=== PATIENT | female | born 1990 | race Caucasian/White ===

== ENCOUNTER 2020-04-23 14:26 | Outpatient (REF) | payer OTHER, SELFPAY ==
[2020-04-24 03:55] LABS: HBc Num1 0.05 S/CO (0.00-0.79); HBsAGNum1 0.17 S/CO (0.00-0.99); Hepatitis B Core Antibody Nonreactive (Nonreactive); Hepatitis B Surface Antigen Negative (Negative); ~Hepatitis B Surface Antibody REACTIVE (Nonreactive)
[2020-04-24 09:07] LABS: Rubella IgG Antibody 3.74 Index; Varicella IgG Antibody <135.00 index
[2020-04-26 15:12] LABS: TS Negative Control Passed; TS Panel A 1; TS Panel B 0; TS Positive Control Passed; TSpotTB Negative (SeeBelow)
== END 2020-04-23 14:27 | disposition home or self-care (01) ==
LOC: HO.LAB 14:26
PROVIDERS: Visit Provider Internal Medicine
DX: Z00.00 Encounter for general adult medical examination without abnormal findings (principal)
CPT/HCPCS: 36415; 86481; 86704; 86706; 86735; 86762; 86765; 86787; 87340

== ENCOUNTER 2023-04-13 14:28 | Outpatient (AMB) | payer OTHER, SELFPAY ==
[2023-04-13 14:30] VITALS: BP 110/70; PULSE 64; BMI 28.7
--- NOTE | 2023-04-13 14:30 | MHC.PC.OV ---
Vital Signs 04/13/23 14:30 Height 4 ft 11 in Weight 142 lb BMI 28.7 BP 110/70 Blood Pressure Location Lt brachial Position Sitting Pulse 64 Pulse Source Pulse Oximeter Oxygen Delivery Method Room Air Intake Visit Reasons: follow up headaches/ meds Ship Scaler Required: No Special Services Supervisor: Not Required per policy Accompanied by: Self / Same As Patient Allergies No Known Allergies Allergy (Mild, Verified 04/13/23 14:31) NKA Tobacco use date assessed: 04/13/23 Dental Screening Dental Screen Date: 04/13/23 Did you have a dental visit in the last 12 months?: No Did you have a dental problem in the last 6 months where you did not have access to dental care?: No Was dental information given to patient?: Patient has dentist HPI follow up headaches/ meds HPI Details new patient, in and out of rehab wants psych meds renewed; also wants suboxone refilled and said she has received it in this office which is not true. [facility] Medical History (Updated 04/14/23 @ 12:52 by Amarjit Sweeney MD) Asthma Social History Housing: House Patient Tobacco Use Status: Former Tobacco user Tobacco use type: Cigarette Cigarette Packs Per Day: 1 Current occupational status: unemployed Cognitive needs: No Hearing needs: No Vision needs: Yes Questionnaire PHQ-9 Over the last 2 weeks, how often have you been bothered by any of the following problems? 1. Little interest or pleasure in doing things: not at all 2. Feeling down, depressed, or hopeless: not at all 3. Trouble falling or staying asleep, or sleeping too much: not at all 4. Feeling tired or having little energy: not at all 5. Poor appetite or overeating: not at all 6. Feeling bad about yourself - or that you are a failure or have let yourself or your family down: not at all 7. Trouble concentrating on things, such as reading the newspaper or watching television: not at all 8. Moving or speaking so slowly that other people could have noticed. Or the opposite - being so fidgety or restless that you have been moving around a lot more than usual: not at all 9. Thoughts that you would be better off or of hurting yourself in some way: not at all Total score: 0 Source: Developed by Drs. Doron Irvin, Faviola Becker, Vipul Gutierrez and colleagues, with an educational yarely from [employer]. Thrive Questionnaire Date Thrive assessed: 04/13/23 I am a: Patient What is your living situation today?: I have a steady place to live Within the past 12 months, did the food you bought not last and you didn't have the money to get more?: Never true Within the past 12 months, did you worry whether your food would run out before you got money to buy more?: Never true Do you have trouble paying for medicines?: No Do you have trouble getting transportation to medical appointments?: No Do you have trouble paying your heating and electricity bill?: No Do you have trouble taking care of your child, family member or friend?: No Do you have trouble with day-to-day activities such as bathing, preparing meals, shopping, managing finances, etc.?: No Are you currently unemployed and looking for a job?: No Are you interested in more education?: No Please select the resources that you would like help with: None THRIVE Score: 0 AUDIT C Alcohol Use Questionnaire (AUDIT-C) 1. How often do you have a drink containing alcohol?: Never Total Score: 0 KADE-7 AMB Questionnaire KADE-7 Date KADE - 7 assessed: 04/13/23 Feeling nervous, anxious, or on edge: 0 = Not at all Not being able to stop or control worryin = Not at all Worrying too much about different things: 0 = Not at all Trouble relaxin = Not at all Being so restless that it is hard to sit still: 0 = Not at all Becoming easily annoyed or irritable: 0 = Not at all Feeling afraid as if something awful might happen: 0 = Not at all Total KADE-7 score (0-4 normal; 5-9 mild; 10-14 moderate; 15-21 severe): 0 Source: Developed by Drs. Doron Irvin, Faviola Becker, Vipul Gutierrez and colleagues, with an educational yarely from [employer]. Review of Systems Const Denies chills, Denies headache(s) and Denies weight loss ENT Denies headache(s) Card Denies chest pain, Denies syncope, Denies irregular heart rhythm and Denies dyspnea Resp Denies chest congestion, Denies cough and Denies dyspnea GI Denies abdominal pain, Denies change in stool character, Denies nausea and Denies vomiting Musc Denies deformity and Denies joint swelling Neuro Denies syncope and Denies headache(s) Physical exam (Primary Care) Vital Signs: Last Vital Signs Pulse 64 04/13/23 14:30 BP 110/70 04/13/23 14:30 Oxygen Delivery Method Room Air 04/13/23 14:30 BMI result Body Mass Index 28.7 Tobacco/Smoking Status: Tobacco use Status Tobacco use date assessed 04/13/23 04/13/23 14:32 Patient Tobacco Use Status Former Tobacco user 04/13/23 14:45 Tobacco use type Cigarette 04/13/23 14:45 PHQ-9: PHQ-9 Score PHQ-9: Total score 0 04/13/23 14:32 Thrive Assessment: Date of Thrive Assessment Date Thrive assessed 04/13/23 04/13/23 14:32 Const General: cooperative, comfortable, no acute distress and alert Neck Neck: Yes no lymphadenopathy Thyroid: Thyroid normal Resp Effort & Inspection: normal respiratory effort Auscultation: clear to auscultation bilaterally Percussion: percussion normal Cardio Jugular venous distension: no JVD Palpation: normal PMI Rate: regular rate Rhythm: regular rhythm Heart sounds: S1 normal heart sound present and S2 normal heart sound present GI Inspection: Yes normal to inspection Palpation (GI): No hepatosplenomegaly present Skin General skin exam: no rashes or lesions noted Extrem General: Yes no clubbing, cyanosis or edema Assessment and Plan Assessment & Plan (1) Substance abuse: Code(s): F19.10 - Other psychoactive substance abuse, uncomplicated Plan: recommend she follow up with suboxone clinic; other scripts refilled Medications: Refilled propranolol 20 mg PO DAILY 30 tabs 1RF quetiapine 50 mg PO BEDTIME 30 tabs 0RF trazodone 100 mg PO BEDTIME PRN 30 tabs 0RF sleep 30 days escitalopram oxalate 10 mg PO DAILY 30 tabs 0RF 30 days hydroxyzine HCl 25 mg PO BEDTIME 30 tabs 0RF Coding Level of Care Code New Pt Level 4 (74529) Diagnoses Substance abuse F19.10
== END 2023-04-13 15:01 | disposition home or self-care (01) ==
PROVIDERS: PCP Internal Medicine; Visit Provider Internal Medicine
DX: F19.10 Other psychoactive substance abuse, uncomplicated (principal)
CPT/HCPCS: 99204

== ENCOUNTER 2024-09-29 15:34 | Outpatient (REF) | payer OTHER, SELFPAY ==
--- OUTSIDE RECORDS SUMMARY | 2024-09-29 16:09 | XMS_ITS | Clinical Summary ---
Author Organization [facility] Address [address] [place] [address] Care Team Providers Care Rat Poisoner Name Role Phone Luana Andrews NP Primary Care Provider [phone] Source Comments PLEASE NOTE, if this patient is a minor, it may be UNLAWFUL to discuss sensitive information that is contained in these records (such as FAMILY PLANNING, MENTAL HEALTH or SUBSTANCE ABUSE) with the minor patient's parent or other person without the patient's specific authorization.[facility] Allergies No known active allergies Medications acetaminophen (TYLENOL) 325 mg tablet Take 2 Tablets by mouth every 8 (eight) hours 60 Tablet 1 12/16/19 24 Active ibuprofen 600 mg tablet Take 1 Tablet by mouth 3 (three) times daily as needed for pain 60 Tablet 1 12/16/19 24 Active folic acid (FOLVITE) 1 mg tablet Take 1 Tablet by mouth once daily 90 Tablet 1 12/16/19 24 Active hydrocortisone (ANUSOL-HC) 2.5 % topical cream Place 1 Application rectally 2 (two) times daily 30 g 3 12/22/19 24 Active naloxone (NARCAN) 4 mg/actuation nasal spray Place 1 [place]ett into the nostril(s) as needed for opioid reversal (Overdose) 2 Each 01/29/20 24 Active SENNA 8.6 mg tablet Take 2 Tablets by mouth nightly at bedtime as needed for constipation 60 Tablet 3 05/19/19 25 Active docusate sodium (COLACE) 100 mg capsule Take 1 Capsule by mouth 2 (two) times daily as needed for constipation 60 Capsule 3 05/19/19 25 Active buprenorphine-nal oxone (SUBOXONE FILM) 4-[address] 1 Strip under the tongue once daily as needed for other reason (breakthrough cravings or withdrawal symptoms) for up to 42 days 21 Each 1 06/23/19 25 Active methylphenidate HCl (CONCERTA) 36 mg ER tabletIndications :Attention deficit hyperactivity disorder (ADHD), predominantly inattentive type Take 1 Tablet by mouth every morning before breakfast. Max Daily Amount: 36 mg 30 Tablet 08/20/19 25 Active clonazePAM (KLONOPIN) 0.5 mg tabletIndications :PTSD (post-traumatic stress disorder),General ized anxiety disorder with panic attacks Take 0.5 Tablets by mouth 2 (two) times daily. Max Daily Amount: 0.5 mg 30 Tablet 08/20/19 25 Active topiramate (TOPAMAX) 100 mg tabletIndications :Cocaine use disorder, moderate, in sustained remission ([facility]) Take 1 Tablet by mouth 2 (two) times daily. 60 Tablet 1 08/20/19 25 Active traZODone (DESYREL) 100 mg tabletIndications :Other insomnia Take 0.5-1 Tablets by mouth nightly at bedtime. 30 Tablet 1 08/20/19 25 Active prazosin (MINIPRESS) 2 mg capsuleIndication s:PTSD (post-traumatic stress disorder),Nightma res associated with chronic post-traumatic stress disorder Take 2 Capsules by mouth nightly at bedtime. 60 Capsule 1 08/20/19 25 Active DULoxetine (CYMBALTA) [address] capsuleIndication s:PTSD (post-traumatic stress disorder),General ized anxiety disorder with panic attacks Take 1 Capsule by mouth once daily. 09/24/19 25 Active melatonin 3 mg tablet Take 1 Tablet by mouth nightly at bedtime as needed for sleep. 30 Tablet 4 09/24/19 25 Active DULoxetine (CYMBALTA) [address] capsuleIndication s:PTSD (post-traumatic stress disorder),General ized anxiety disorder with panic attacks Take 1 Capsule by mouth once daily Take with 20 mg capsule for a total of Cymbalta DR 80 mg PO daily. 30 Capsule 3 08/06/19 25 025 Discontin ued(Quant ity/Dosag e and/or Sig change) Active Problems Problem Noted Date Diagnosed Date ADHD 01/08/2024 Assessment & Plan (06/21/2024 3:10 PM EDT): Continue Concerta 27 mg PO daily, defer dose increase today Neuropsych testing referral in place Assessment & Plan (05/27/2024 11:02 AM EDT): INCREASE Concerta XR to 27 mg PO daily--bridged to next in person appointment Utox to be collected at next in person appointment Neuropsych referral placed Assessment & Plan (04/05/2024 6:00 AM EST): Continue Concerta XR 18 mg PO daily--bridged to next in person appointment Utox to be collected at next in person appointment Assessment & Plan (03/01/2024 12:04 PM EST): Continue Concerta XR 18 mg PO daily Utox ordered Assessment & Plan (02/02/2024 12:07 PM EST): Continue Concerta ER 18 mg PO daily for focus/inattention issues--most recent utox appropriate; will have Leandra sign BHARGAVI re results of past neuro psych testing Thus far well tolerated but Leandra unsure of efficacy; will give more time Assessment & Plan (01/08/2024 5:04 PM EDT): START Concerta ER 18 mg PO daily for focus/inattention issues--most recent utox appropriate; will have Leandra sign BHARGAVI re results of past neuro psych testing Complex care coordination 12/23/2023 Assessment & Plan (06/21/2024 3:11 PM EDT): [facility]), updated med list faxed to [facility] per Leandra's request Assessment & Plan (05/27/2024 11:33 AM EDT): Continue to collaborate with PCP ASH Andrews and [facility] MICHAEL Gomez re care coordination/pertinent labs/screenings/monitoring Assessment & Plan (02/02/2024 12:08 PM EST): Updated medication list faxed to [facility] Assessment & Plan (01/08/2024 4:56 PM EDT): Updated medication list faxed to [facility] Assessment & Plan (12/23/2023 2:49 PM EDT): Information regarding medication changes sent to [facility] Abnormal weight gain 12/01/2023 Assessment & Plan (05/27/2024 11:34 AM EDT): No longer on atypical antipsychotic, reviewed healthy lifestyle strategies, follow up with PCP Assessment & Plan (01/14/2024 10:54 AM EDT): Pt is extremely concerned with the weight gain she has experienced while being at [facility]. She was 177 lbs on 06/15/23 and is now at 221 lbs. She leads a sedentary lifestyle which is likely contributing to weight gain and disconditioning. This senior medical writer and Pt reviewed CDC recommendations for physical activity for her age group. Provided her with info sheets on different exercises she can do on her own without needing machines or equipment. She was also given a nutrition sheet describing healthy foods she can try and incorporate into her diet. Reminded Pt that [facility] clients are able to join the [employer] gym in [facility] for free. Encouraged her to check it out. Assessment & Plan (12/23/2023 2:47 PM EDT): -Reviewed healthy lifestyle changes including: healthy eating, exercise -completing antipsychotic cross taper Assessment & Plan (12/01/2023 2:45 PM EDT): -Collaborate with ASH Andrews (patient's PCP) re weight loss w/u and to discuss Pharmacologic management -Reviewed healthy lifestyle changes including: healthy eating, exercise -Cross Taper to Start treatment with Latuda and Stop treatment with Seroquel Generalized anxiety disorder with panic attacks 11/06/2023 Assessment & Plan (06/21/2024 3:09 PM EDT): Increase Cymbalta to 80 mg PO daily Encourage psychotherapy Continue Clonazepam 0.5 mg PO BID PRN for anxiety (utox and V[employer]UCATION PROFESSIONAL reviewed) Most recent utox appropriate Assessment & Plan (05/27/2024 11:01 AM EDT): Continue Cymbalta 60 mg PO daily (consider increase at next visit) Encourage psychotherapy Continue Clonazepam 0.5 mg PO BID PRN for anxiety (most recent utox appropriate) Next appointment in person for utox Assessment & Plan (04/22/2024 12:21 PM EST): Continue Cymbalta 60 mg PO daily (consider increase at next visit) Encourage psychotherapy Continue Clonazepam 0.5 mg PO BID PRN for anxiety (most recent utox appropriate) Next appointment in person for utox Assessment & Plan (04/05/2024 5:59 AM EST): Continue Cymbalta 60 mg PO daily Encourage psychotherapy Continue Clonazepam 0.5 mg PO BID PRN for anxiety Currently at [facility] Assessment & Plan (02/02/2024 12:06 PM EST): Continue Cymbalta 60 mg PO daily Encourage psychotherapy (will have apt with [facility] therapist Jamie) Continue Clonazepam 0.5 mg PO BID PRN for anxiety Assessment & Plan (01/08/2024 4:54 PM EDT): Continue Cymbalta 60 mg PO daily Encourage psychotherapy (will have apt with [facility] therapist Jamie) Continue Clonazepam 0.5 mg PO BID PRN for anxiety Assessment & Plan (12/01/2023 2:41 PM EDT): Continue Cymbalta 60 mg PO daily Encourage psychotherapy (will have apt with [facility] therapist Jamie) Continue Clonazepam 0.5 mg PO BID PRN for anxiety Assessment & Plan (11/06/2023 1:19 PM EDT): Continue Clonazam 0.5 mg PO BID PRN for anxiety Continue monthly utox screenings Continue psychotherapy Acute bilateral low back pain with bilateral sci atica 10/21/2023 Assessment & Plan (10/23/2023 12:48 PM EDT): Instructed pt that a provider would need to increase her pain med-pt's provider currently on vacation Appt made with Davida Andrews np for nov 17 for further eval. Inbasket sent to Davida Andrews np to inform of back pain/ibuprofen and tylenol not helping Talked with pt that she may need a referral to ortho but that would be up to her pcp Instructed pt to continue to take ibuprofen and tylenol as ordered-instructed pt if her back pain gets worse, she can go to the er for a further eval. Instructed pt in the s/sx of neuro distress-steps to take if occur. Assessment & Plan (10/21/2023 12:43 PM EDT): PT with low back pain with sciatic nerve involvement. She is having difficulty ambulating. She has not taken anything for the pain. Assessed area. Some swelling noted, no bruises or angelina injury obvious. She has gained weight while being in the program, and leads a sedentary lifestyle. She had a refill for Ibuprofen 600 mg at the pharmacy and they will deliver it tomorrow. She does not have any refills left on Acetaminophen 650 mg. Provided Pt with a dose of Acetaminophen 650 mg and Ibuprofen 600 mg in clinic from [facility]. She was given additional packets, ice/hot packs, and muscle rub. Encouraged to use pillow under or between knees when sleeping depending on positioning. Encouraged light stretching starting tomorrow. Pt excused from responsibilities through Thursday when she will be back for follow up. She has gained weight, and reports that this pain is chronic, coming and going for a few years. She will benefit from weight, nutrition, and exercise education, as well as Physical Therapy.Will schedule provider follow up on Thursday. Cocaine use disorder, modera te, in sustained remission ([facility]) 09/04/2023 Assessment & Plan (06/21/2024 3:08 PM EDT): Continue Topamax to 100 mg PO BID; reporting some increased cravings---encouraged to engage in START program through [facility]; may also receive some MAT via low-dose stimulant, most recent utox appropriate Assessment & Plan (05/27/2024 10:58 AM EDT): Continue Topamax to 100 mg PO BID; reporting some increased cravings---encouraged to engage in START program through [facility]; may also receive some MAT via low-dose stimulant, most recent utox + for cocaine though Leandra denies use--will obtain repeat utox Assessment & Plan (04/22/2024 12:23 PM EST): Continue Topamax to 100 mg PO BID; reporting some increased cravings---encouraged to engage in START program through [facility]; may also receive some MAT via low-dose stimulant Assessment & Plan (04/05/2024 6:01 AM EST): Continue Topamax to 100 mg PO BID; reporting reduced cravings-engaging in START program through [facility]; may also receive some MAT via low-dose stimulant Assessment & Plan (03/01/2024 12:05 PM EST): Continue Topamax to 100 mg PO BID; reporting reduced cravings-engaging in START program through [facility]; may also receive some MAT via low-dose stimulant Assessment & Plan (02/02/2024 12:08 PM EST): INCREASE Topamax to 100 mg PO BID; pending effect--reports cravings persist--engaging in START program through [facility]; may also receive some MAT via low-dose stimulant Assessment & Plan (01/08/2024 4:55 PM EDT): Topamax increased to 75 mg PO BID; pending effect--reports cravings persist--engaging in START program through [facility]; may also receive some MAT via low-dose stimulant Assessment & Plan (12/23/2023 2:45 PM EDT): Change Topamax to 50 mg PO BID to mitigate HS activation (encourage increase if patient amenable) Assessment & Plan (12/01/2023 2:42 PM EDT): Continue Topamax 25 mg PO daily and 75 mg PO QHS to reduce daytime sedation (encourage increase if patient amenable) Assessment & Plan (11/06/2023 1:16 PM EDT): Continue Topamax--change dosing to 25 mg PO daily and 75 mg PO QHS to reduce daytime sedation Assessment & Plan (09/04/2023 5:16 PM EDT): Still abstinent but reporting increased cravings, consider starting Topamax 25 mg PO QHS at next visit PTSD (post-traumatic stress disorder) 08/25/2023 Assessment & Plan (06/21/2024 3:09 PM EDT): Increase Cymbalta to 80 mg PO daily Encourage psychotherapy Continue Clonazepam 0.5 mg PO BID PRN for anxiety (VOCATIONAL EDUCATION PROFESSIONAL reviewed) Most recent utox appropriate Continue Prazosin Assessment & Plan (05/27/2024 11:01 AM EDT): Continue Cymbalta 60 mg PO daily Encourage psychotherapy Continue Clonazepam 0.5 mg PO BID PRN for anxiety (utox and V[employer]ATIONAL EDUCATION PROFESSIONAL reviewed) Will obtain repeat utox at next appointment Continue Prazosin Assessment & Plan (04/22/2024 12:21 PM EST): Continue Cymbalta 60 mg PO daily Encourage psychotherapy Continue Clonazepam 0.5 mg PO BID PRN for anxiety (most recent utox appropriate) Will obtain repeat utox at next appointment Assessment & Plan (04/05/2024 5:59 AM EST): Continue Cymbalta 60 mg PO daily Encourage psychotherapy Continue Clonazepam 0.5 mg PO BID PRN for anxiety (most recent utox appropriate) Currently completing IOP Assessment & Plan (03/01/2024 12:03 PM EST): Continue Cymbalta 60 mg PO daily Encourage psychotherapy (f/u [facility] therapist at next visit) Continue Clonazepam 0.5 mg PO BID PRN for anxiety (most recent utox appropriate) Assessment & Plan (02/02/2024 12:06 PM EST): Continue Cymbalta 60 mg PO daily Encourage psychotherapy (will have appt with [facility] therapist Jamie) Continue Clonazepam 0.5 mg PO BID PRN for anxiety (most recent utox appropriate) Assessment & Plan (01/08/2024 4:54 PM EDT): Continue Cymbalta 60 mg PO daily Encourage psychotherapy (will have appt with [facility] therapist Jamie) Continue Clonazepam 0.5 mg PO BID PRN for anxiety (most recent utox appropriate) Assessment & Plan (12/23/2023 2:44 PM EDT): Continue Cymbalta 60 mg PO daily Encourage psychotherapy (will have appt with [facility] therapist Jamie) Continue Clonazepam 0.5 mg PO BID PRN for anxiety (most recent utox appropriate) Assessment & Plan (12/01/2023 2:40 PM EDT): Continue Cymbalta 60 mg PO daily Encourage psychotherapy (will have apt with [facility] therapist Jamie) Continue Clonazepam 0.5 mg PO BID PRN for anxiety Assessment & Plan (11/06/2023 1:12 PM EDT): Continue Lexapro 20 mg PO daily [facility]discussed option for psychotherapy w/ clinician Avani White if indicated d/t staffing turnover at [facility] Continue Seroquel 300 mg PO QHS Moderate episode of recurren t major depressive disorder ([facility]) 08/25/2023 Assessment & Plan (06/21/2024 3:08 PM EDT): Reporting some increased depression INCREASE Cymbalta to 80 mg PO daily Encourage psychotherapy Assessment & Plan (04/22/2024 12:20 PM EST): Reporting some increased depression Continue Cymbalta 60 mg PO daily ( can consider increasing cymbalta at next visit declines today) Encourage psychotherapy Assessment & Plan (01/14/2024 10:56 AM EDT): Pt has been struggling with her mental health, and states she feel very unmotivated. All she wants to do is sleep. This senior medical writer reminded her of her psych appointment today, and Pt stated she didn't remember she had one. She will go after this visit. Assessment & Plan (01/08/2024 4:54 PM EDT): Continue Cymbalta at 60 mg PO daily Continue Latuda to 60 mg PO daily (has been tolerating and requests increase to help manage mood) Encourage psychotherapy Assessment & Plan (12/23/2023 2:42 PM EDT): STOP Seroquel (cross taper complete) Continue Cymbalta at 60 mg PO daily INCREASE Latuda to 60 mg PO daily (has been tolerating and requests increase to help manage mood) Assessment & Plan (12/01/2023 2:39 PM EDT): Cross Taper Latuda and Seroquel Continue Cymbalta at 60 mg PO daily Nightmares associated with c hronic post-traumatic stress disorder 08/25/2023 Assessment & Plan (05/27/2024 10:55 AM EDT): Continue Prazosin 4 mg PO QHS for nightmares Assessment & Plan (01/08/2024 4:53 PM EDT): Continue Prazosin 4 mg PO QHS for nightmares Assessment & Plan (12/23/2023 2:41 PM EDT): Continue Prazosin 4 mg PO QHS for nightmares Assessment & Plan (11/06/2023 1:13 PM EDT): Continue Prazosin 4 mg PO QHS for nightmares Other insomnia 08/25/2023 Assessment & Plan (05/27/2024 11:33 AM EDT): Reports sleep improved--continue trazodone 150 mg PO QHS and Melatonin PRN Assessment & Plan (04/22/2024 12:23 PM EST): Reports sleep improved--continue trazodone 150 mg PO QHS and Melatonin PRN Assessment & Plan (04/05/2024 6:01 AM EST): Reports sleep improved--continue trazodone 150 mg PO QHS and Melatonin PRN Assessment & Plan (03/01/2024 12:06 PM EST): Reports sleep improved--continue trazodone 150 mg PO QHS and Melatonin PRN Assessment & Plan (01/08/2024 4:58 PM EDT): Reports worsening insomnia iso being off Seroquel--continue trazodone 150 mg PO QHS; START Melatonin PRN Assessment & Plan (12/23/2023 2:45 PM EDT): Continue Trazodone 150 mg PO QHS Sleep Hygiene reviewed Assessment & Plan (12/01/2023 2:43 PM EDT): Continue Trazodone 150 mg PO QHS Sleep Hygiene reviewed Assessment & Plan (11/06/2023 1:14 PM EDT): Continue Trazodone 150 mg PO QHS Sleep Hygiene reviewed Encounter for Nexplanon removal 07/21/2023 Sheltered homelessness 07/21/2023 Assessment & Plan (06/21/2024 3:10 PM EDT): [facility]working with case management there regarding housing Assessment & Plan (05/27/2024 11:32 AM EDT): Currently in residential treatment program through [facility]--working with case management there regarding housing Assessment & Plan (04/22/2024 12:22 PM EST): Currently in residential treatment program through [facility]--working with case management there regarding housing Assessment & Plan (04/05/2024 6:00 AM EST): Currently in residential treatment program--working with case management there regarding housing Assessment & Plan (03/01/2024 12:05 PM EST): Currently in residential treatment program--working with case management there regarding housing Assessment & Plan (02/02/2024 12:07 PM EST): Currently in residential treatment program--working with case management there regarding housing Assessment & Plan (11/06/2023 1:17 PM EDT): Currently in residential treatment program--working with case management there regarding housing Assessment & Plan (07/21/2023 10:46 AM EDT): Stays at local snf, seeks supportive services at [facility] sites Cervical cancer screening 07/16/2023 Vaginal discharge 07/16/2023 Chlamydia 06/25/2023 Overview (06/25/2023): Tested on 06/22/23. + Mahesh Avitia asx. Assessment & Plan (06/25/2023 10:52 AM EDT): Pt came in on Thursday for routine STI screening. She had not reported any urinary or vaginal symptoms prior. Symptoms? I had a feeling, and I was starting to feel some burning when I pee. Previous infection? When she was a teenager, and doesn't recall feeling any symptoms. Number of partners in last 6 months? Reports only one sexual partner in the last few months that was a friend, and no one prior for 3 years. She reports this person is very ignorant and took the news ignorantly. He told her he will take care of it on his own. Called [facility] today to request that the medication be delivered today. They confirmed it will be delivered this afternoon. Pt to start with evening medications. Treatment without missed doses should finish morning of 07/02/23. Discussed ways to prevent the spread of STIs in the future, and recommended that new partners and she be tested. Pt stated she is not planning on having any sexual partners for the near future. Alcohol use disorder, modera te, in early remission, in controlled environment ([facility]) 06/25/2023 Assessment & Plan (05/27/2024 10:57 AM EDT): Cont. Topamax 100 mg PO BID Denies recent alcohol use Not candidate for naltrexone given BUP rx Discussed non-pharm methods to manage cravings Assessment & Plan (12/01/2023 2:42 PM EDT): Continue Topamax 25 mg PO daily and 75 mg PO QHS to reduce daytime sedation (encourage increase if patient amenable) Assessment & Plan (11/06/2023 1:16 PM EDT): Continue Topamax--change dosing to 25 mg PO daily and 75 mg PO QHS to reduce daytime sedation Assessment & Plan (06/25/2023 11:50 AM EDT): This senior medical writer sent the provider at [facility] a message about Pt reporting cravings for alcohol and hoping to get some MAT to help. Per Pt provider has held off on prescribing anything, because she does not know how her liver is functioning and doesn't feel comfortable without it. Pt missed her PCP appointment yesterday, and is rescheduled for 07/01/23. Explained that at that appointment provider will order labs and the CMP will be included. Drug induced constipation 06/15/2023 Overview (06/15/2023): Pt on Suboxone 8-2 mg TID. Has been having issues with constipation, and prescribed Docusate 100 mg and Senna 8.6 mg PRN. Reports ineffective. Assessment & Plan (12/22/2023 2:03 PM EDT): Reports no BM in 1-2 weeks, and hemmorhoids 'acting up' . Has not taken colace or senna in the last 3 days, 'ran out'. Education around constipation prevention and tx. Plan: refilled senna and colace, short script for dulcolax, and anusol prn; push fluids; s/s for which to seek ER care discussed. Stressed importance of fiber, activity, fluids ongoing. Assessment & Plan (06/15/2023 1:10 PM EDT): Pt on Suboxone 8-2 mg TID, with prescription of Docusate 100 mg and Senna 8.6 mg to be taken to help with constipation caused by opioid medication. She reports that she takes these medications and doesn't feel like it is helping at all. She reports discomfort with distention and feeling full. Provided 1 dose of Milk of Mag to be taken today with 8 oz of water or more. Pt reports she has very little water intake. Educated Pt on how the Docusate, Senna, and Milk of Mag work. Explained that without adequate water intake the medications will not do their job and she will continue to become distended. Provided printout on constipation and how to take care of yourself at home. Opioid use disorder, moderat e, in early remission, in controlled environment ([facility]) 06/15/2023 Assessment & Plan (06/21/2024 3:07 PM EDT): Continue suboxone w/ [facility], most recent utox appropriate Collaborate with [facility] re clustering in office appointments Assessment & Plan (05/27/2024 10:56 AM EDT): Continue suboxone w/ [facility] Denies recent substance use though most recent tox screen + for opiates---will repeat tox screen Assessment & Plan (04/22/2024 12:22 PM EST): Continue suboxone w/ [facility] Denies recent substance use Assessment & Plan (04/05/2024 6:01 AM EST): Continue suboxone w/ [facility] Encouraged her to f/u with [facility] team JAKE iso running low on suboxone Assessment & Plan (03/01/2024 12:05 PM EST): Continue suboxone w/ [facility] Assessment & Plan (02/02/2024 12:07 PM EST): Continue suboxone w/ [facility] Assessment & Plan (01/08/2024 4:55 PM EDT): Continue suboxone w/ [facility] Assessment & Plan (12/23/2023 2:44 PM EDT): Continue suboxone w/ [facility] Assessment & Plan (12/01/2023 2:41 PM EDT): Continue w/ suboxone w/ [facility] Assessment & Plan (11/06/2023 1:15 PM EDT): Continue w/ suboxone w/ [facility] Assessment & Plan (06/15/2023 1:13 PM EDT): Currently being prescribed Suboxone 8-2 mg TID by the provider at [facility]. Once she establishes care with us, we will need to order a urine tox screen, and confirm how many strips of Suboxone she has left. Resolved Problems Problem Noted Date Diagnosed Date Resolved Date Tremor 11/06/2023 05/27/2024 Assessment & Plan (04/22/2024 12:25 PM EST): Continue propranolol; will assess tremor at next in person visit Assessment & Plan (04/05/2024 6:02 AM EST): Tremor well controlled REDUCE Propranolol to 10 mg PO ONCE daily Assessment & Plan (03/01/2024 12:06 PM EST): Continue propranolol 10 mg PO BID Assessment & Plan (01/08/2024 4:56 PM EDT): Reports has returned since stopping propranolol--wishes to resume; plan to re- start propranolol 10 mg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
--- OUTSIDE RECORDS SUMMARY | 2024-09-29 16:09 | XMS_ITS | Encounter Summary ---
Author Organization [email or web address] Address [address] [place] [address] [address] [place] [address] Care Team Providers Care Senior Java Developer Name Role Phone Unavailable Primary Care Provider Unavailabl e Reason for Visit * Reason Comments Med Refill Encounter Details Date Type Department Care Team (Late st Contact Info) Description 04/03/2023 Refill [facility] [address] [place] [address] [phone] Nita Fenton MD [address] [place] [phone] Uncomplicated opioid dependence (CMS/HCC) Social History Tobacco Use Types Packs/Day Years Used Date Smoking Tobacco: Never Assessed Depression Answer Date Recorded Patient Health Questionnaire-9 Score 26 09/26/2022 Depression Answer Date Recorded Patient Health Questionnaire-2 Score 6 09/26/2022 Comments Unknown Sex and Gender Information Value Date Recorded Sex Assigned at Female 02/14/2022 10:19 AM EST Legal Sex Female 10:11 AM EST Gender Identity Female 02/14/2022 10:19 AM EST Sexual Orientation Straight 02/14/2022 10 :19 AM EST documented as of this encounter Plan of Treatment Upcoming Encounters Date Type Department Care Team (Late st Contact Info) Description 10/06/2024 2:15 PM EDT Office Visit [facility] [address] [place] [phone] Magnolia Parsons MD [address] [place] [phone] 10/06/2024 2:30 PM EDT Office Visit [facility] [address] [place] [phone] Magnolia Parsons MD [address] [place] [address] 10/13/2024 1:45 PM EDT Office Visit [facility] [address] [place], [place] [phone] Magnolia Parsons MD [address] [place] [address] documented as of this encounter Visit Diagnoses Diagnosis Uncomplicated opioid dependence (CMS/HCC) documented in this encounter Additional Health Concerns Assessment Noted Time PHQ-9 Depression Total Score: 26 023 1:48 PM EDT documented as of this encounter
[2024-09-29 16:46] LABS: Alanine Aminotransferase 110 U/L (0-31); Albumin Level 4.6 g/dL (3.5-5.0); Alkaline Phosphatase 173 U/L (39-117); Aspartate Amino Transferase 100 U/L (5-31); Total Protein 7.4 g/dL (6.5-8.0)
[2024-09-30 03:46] LABS: Syphilis Screen Nonreactive (Nonreactive)
[2024-09-30 04:03] LABS: HBS Num1 389.00 mIU/mL (0-7.99); HBc Num1 0.04 S/CO (0.00-0.79); HBsAGNum1 0.39 S/CO (0.00-0.99); HIV Num 1 0.05 S/CO (0.00-0.99); Hepatitis B Surface Antigen Negative (Negative); ~HepC Num1 0.10 S/CO (0.00-0.79); ~Hepatitis B Surface Antibody REACTIVE (Nonreactive); ~Hepatitis C Antibody Nonreactive (Nonreactive)
[2024-09-30 04:05] LABS: ~Hepatitis A Antibody IgG 9.34 S/CO (0.00-0.99)
[2024-10-02 20:29] LABS: TS Negative Control Passed; TS Panel A 1; TS Panel B 0; TS Positive Control Passed; TSpotTB Negative (Negative)
== END 2024-09-29 15:35 | disposition home or self-care (01) ==
LOC: HO.HHCL 15:34
PROVIDERS: PCP Internal Medicine; Visit Provider Family Medicine
DX: Z11.1 Encounter for screening for respiratory tuberculosis (principal); Z11.4 Encounter for screening for human immunodeficiency virus [HIV]; Z11.3 Encounter for screening for infections with a predominantly sexual mode of transmission; F11.20 Opioid dependence, uncomplicated
CPT/HCPCS: 36415; 80076; 86481; 86704; 86706; 86708; 86780; 86803; 87340; 87389

== ENCOUNTER 2024-11-17 17:38 | Outpatient (REF) | payer MEDICAID, SELFPAY ==
--- OUTSIDE RECORDS SUMMARY | 2024-11-17 15:30 | XMS_ITS | Encounter Summary ---
Author Organization [employer] Address [address] [place] [address] [address] [place] [address] Care Team Providers Care Hvac Service Manager Name Role Phone Unavailable Primary Care Provider Unavailabl e Reason for Visit * Reason Comments OBAT Encounter Details Date Type Department Care Team (Latest Contact Info) Description 11/17/2024 3:30 PM EDT Office Visit [facility] [address] [place], [place] [phone] Magnolia Parsons MD [address] [place], [place] [phone] Uncomplicated opioid dependence (CMS/HCC) (Primary Dx) Social History Tobacco Use Types Packs/Day Years [...] AM EST documented as of this encounter Progress Notes * Magnolia Parsons MD - 11/17/2024 3:30 PM EDT Patient here today for Opioid Dependence.Current Suboxone dose of 20 mg on a WEEKLY schedule. Patient reports taking medication as prescribed, no cravings or adverse effects. Pt has been in the program for 8 WEEKS. Induction date:09/22/24. LFTs done-- Patient actively enrolled w/ [facility], Sees (--) MAPAT reviewed by ... Last PCP appt... BC Method... LAST 09/29/24 Leandra reports that she is maintaining abstinence from opioids on current dose of Suboxone 24/6 daily. She is living with her mother and 4 yo son. She is working with [facility] to regain custody of her 10 yo daughter. She is connected to psych prescriber Sharri Gunter in [place]. Med list reviewed and updated. She would like to start Sublocade. She has read about it and I agree that it is a good option for her. She understands that she will need to change her insurance to one that [facility] accepts before we otoniel that. She is aware of the recovery supports available here. TODAY-11/17/24 POS:BUP,TJ Subjective Patient ID: Leandra Alan is a 34 y.o. female who presents for OBAT. Leandra is being seen for OBAT services. It has been a number of weeks since her last visit. Finally got her insurance changed. Her car had broken down and was unable to get here for visits. She's been rationing Suboxone and just ran out this morning. She is upset that there is cocaine in her urine. Doesn't know where it came from. Occasionally shares cigarettes with others or buys loose cigarettes when she can't afford a whole pack. She is very close to getting custody of her 15 yo back and doesn't want to put that in jeopardy. Review of Systems Psychiatric/Behavioral: Negative for dysphoric mood. The patient is not nervous/anxious. Objective Physical Exam Constitutional: Appearance: Normal appearance. Skin: General: Skin is warm and dry. Neurological: Mental Status: She is alert and oriented to person, place, and time. Assessment/Plan Diagnoses and all orders for this visit: Uncomplicated opioid dependence ([facility]) Counseling provided RE: importance of multiple sources of support for achieving and maintaining recovery. Counseling RE: harm reduction measures, ie, not using alone, the use of clean needles/equipment, Narcan. Discussed strategies to use when confronted with situations that trigger use. Continue current Suboxone dose. Continue weekly visits. Send urine for cocaine confirmation. - POCT NOLVIA-14 Urine Drug Screen - Drug Monitoring, Cocaine Metabolite, Quantitative, Urine This information has been disclosed to you from records protected by federal confidentiality rules (42 CFR Part 2). The federal rules prohibit you from making any further disclosure of information inthis record that identifies a patient as having or having had a substance use disorder either directly, by reference to publicly available information, or through verification of such identification by another person unless further disclosure is expressly permitted by the written consent of the individual whose information is being disclosed or as otherwise permitted by (see2.3.1). The federal rules restrict any use of the information to investigate or prosecute with regard to a crime any patient with a substance use disorder, except as provided at 2.12??(5) and 2.65. documented in this encounter Plan of Treatment Upcoming Encounters Date Type Department Care Team (Late st Contact Info) Description 11/24/2024 3:45 PM EDT Office Visit [facility] [address] [place] [phone] Magnolia Parsons MD [address] [place] [phone] 12/01/2024 3:45 PM EDT Office Visit [facility] [address] [place] [phone] Magnolia Parsons MD [address] [place] [phone] Scheduled Orders Name Type Priority Associated Diagnoses Orde r Schedule Drug Monitoring, Cocaine Metabolite, Quantitative, Urine Lab Routine Uncomplicated opioid dependence ([facility]) Ordered: 11/17/2024 documented as of this encounter Procedures Procedure Name Priority Date/Time Associated Diagnosis Comments POCT NOLVIA-14 URINE DRUG SCREEN Routine 11/17/2024 3:39 PM EDT Uncomplicated opioid dependence ([facility]) documented in this encounter Results * (ABNORMAL) POCT NOLVIA-14 Urine Drug Screen (11/17/2024 3:39 PM EDT) THC Negative Negative Cocaine Screen, Urine Positive(A) Negative Opiate Screen, Urine Negative Negative Methamphetamine Screen Urine Negative Negative Amphetamine Screen, Urine Negative Negative Benzodiazepines Screen, Urine Negative Negative Barbiturate Screen, Urine Negative Negative Methadone Screen, Urine Negative Negative Buprenophine Screen, Urine Positive(A) Negative TCA, Urine Negative Negative MDMA Urine Negative Negative ng/mL Oxycodone Screen, Urine Negative Negative Phencyclidine (PCP), Urine Negative Negative Fentanyl, Urine Negative Negative Urine Urine specimen obtained by clean catch procedure / Unknown 11/17/2024 3:39 PM EDT Magnolia Parsons MD POINT OF CARE TEST ENTER/LIVIER T ORDERABLES Final Result documented in this encounter Visit Diagnoses Diagnosis Uncomplicated opioid dependence (CMS/HCC)- Primary documented in this encounter Additional Health Concerns Assessment Noted Time PHQ-9 Depression Total Score: 26 09/26/2 023 1:48 PM EDT documented as of this encounter
--- OUTSIDE RECORDS SUMMARY | 2024-11-17 17:42 | XMS_ITS | Clinical Summary ---
Author Organization [employer] Address [address] [place] [address] 7[address] [place] [address] Care Team Providers Care Quality Assurance Assistant Name Role Phone Unavailable Primary Care Provider Unavailabl e Allergies No known active allergies Medications * This document contains information received from the source organization and may not represent a complete record from that organization. docusate sodium (Colace) 100 MG capsuleIndica tions:Uncompl icated opioid dependence (CMS/HCC) 1 or 2 capsules by mouth at bedtime as needed for constipation (stool softener) 60 capsule 3 10/02/19 23 Active sennosides (Senokot) 8.6 MG tabletIndicat ions:Uncompli cated opioid dependence (CMS/HCC) 1 or 2 tablets PO at bedtime as needed for constipation (natural intestinal stimulant) 60 tablet 3 10/02/19 23 Active naloxone (Narcan) 4 mg/0.1 mL nasal spray Administer 1 spray (4 mg) into affected nostril(s) if needed for opioid reversal. May repeat every 2-3 minutes if needed, alternating nostrils, until medical assistance becomes available. 2 each 09/23/19 25 026 Active Concerta 36 MG CR tablet Take 36 mg by mouth in the morning. 08/20/19 25 Active prazosin (Minipress) 2 MG capsule Take 2 mg by mouth at bedtime. Active topiramate (Topamax) 100 MG tablet Take 100 mg by mouth 2 times daily. Active traZODone (Desyrel) 100 MG tablet Take 100 mg by mouth at bedtime. Active clonazePAM (KlonoPIN) 0.5 MG tablet Take 0.5 mg by mouth 2 times daily. Active DULoxetine (Cymbalta) [address] capsule Take 60 mg by mouth Once per day. 09/24/19 Active buprenorphine -naloxone (Suboxone) 4-1 MG per sublingual filmIndicatio ns:Uncomplica aishwarya opioid dependence (CMS/HCC) Place 1 Film under the tongue Once per day for 7 days. 7 Film 11/18/19 25 Active Buprenorphine HCl-Naloxone HCl (Suboxone) 8-2 MG SL filmIndicatio ns:Uncomplica aishwarya opioid dependence (CMS/HCC) Place 1 Film under the tongue 2 times daily for 7 days. 14 Film 11/18/19 25 Active buprenorphine -naloxone (Suboxone) 4-1 MG per sublingual filmIndicatio ns:Uncomplica aishwarya opioid dependence (CMS/HCC) Place 1 Film under the tongue Once per day for 7 days. 7 Film 10/07/19 25 025 Discontinued(R eorder (will not trigger notification to Pharmacy)) Buprenorphine HCl-Naloxone HCl (Suboxone) 8-2 MG SL filmIndicatio ns:Uncomplica aishwarya opioid dependence (CMS/HCC) Place 1 Film under the tongue 2 times daily for 7 days. 14 Film 10/07/19 25 025 Discontinued(R eorder (will not trigger notification to Pharmacy)) Buprenorphine HCl-Naloxone HCl (Suboxone) 8-2 MG SL filmIndicatio ns:Uncomplica aishwarya opioid dependence (CMS/HCC) Place 1 Film under the tongue 2 times daily for 7 days. 14 Film 10/28/19 25 025 Discontinued(R eorder (will not trigger notification to Pharmacy)) buprenorphine -naloxone (Suboxone) 4-1 MG per sublingual filmIndicatio ns:Uncomplica aishwarya opioid dependence (CMS/HCC) Place 1 Film under the tongue Once per day for 7 days. 7 Film 10/28/19 25 025 Discontinued(R eorder (will not trigger notification to Pharmacy)) buprenorphine -naloxone (Suboxone) 4-1 MG per sublingual filmIndicatio ns:Uncomplica aishwarya opioid dependence (CMS/HCC) Place 1 Film under the tongue Once per day for 14 days. 7 Film 1 11/03/19 25 025 Discontinued(R eorder (will not trigger notification to Pharmacy)) Buprenorphine HCl-Naloxone HCl (Suboxone) 8-2 MG SL filmIndicatio ns:Uncomplica aishwarya opioid dependence (CMS/HCC) Place 1 Film under the tongue 2 times daily for 14 days. 14 Film 1 11/03/19 25 025 Discontinued(R eorder (will not trigger notification to Pharmacy)) Active Problems Problem Noted Date Diagnosed Date Severe episode of recurrent major depressive disorder, without psychotic features 09/26/2022 Assessment & Plan (09/29/2022 8:45 AM EDT): Assessment and Plan: Leandra was engaged with [...] alcohol, cannabis and cocaine. Open case with [facility], concern about the possibility of her 12 y/o and her 2 y/o be set for adoption. Patient will benefit from Ind. Therapy and Medication Management. At this time Leandra Alan meets criteria for Visit Diagnoses: Problem List Items Addressed This Visit Other Severe episode of recurrent major depressive disorder, without psychotic features (CMS/HCC) Patient ready to address current needs Yes Strengths include she is able to advocate for herself. PLAN: 1. Follow up with [facility]: Recommended for follow-up: During her OBAT appts 2. Patient goal is to become sober and work on gain 3. Behavioral Recommendations a. Ind. Therapy b. Medication Management c. [facility] follow up d. Engage with [facility] Encounters Date Type Department Care Team Description 11/17/2024 3:30 PM EDT Office Visit [facility] [place] [address] Magnolia Parsons MD Uncomplicated opioid dependence (CMS/HCC) (Primary Dx) 11/17/2024 Refill [facility] [address] [facility] [place] [address] Magnolia Parsons MD Uncomplicated opioid dependence (CMS/HCC) 11/17/2024 Travel 11/09/2024 Refill [facility] [place] [address] Wallace Tamayo MD Uncomplicated opioid dependence (CMS/HCC) 11/02/2024 Refill [facility] [address] [place] [address] [phone] Zohaib Jones RN Uncomplicated opioid dependence ([facility]/HCC) 10/27/2024 Telephone [facility] [address] [place] [address] [phone] Clarita Cruz RN 10/27/2024 Refill [facility] [address] [place] [address] [phone] Clarita Cruz, MICHAEL Uncomplicated opioid dependence (CMS/HCC) 10/26/2024 Telephone [facility] [address] [place] [address] [phone] Magnolia Parsons MD 10/25/2024 Telephone [facility] [address] [place] [address] [phone] Clarita Cruz RN 10/25/2024 Patient Outreach [facility] [address] [place] [address] [phone] Abdullahi Mcallister Recovery Supports 10/19/2024 Telephone [facility] [address] [place] [address] [phone] Magnolia Parsons MD 10/12/2024 Telephone [facility] [address] [place] [address] [phone] Magnolia Parsons MD 10/06/2024 Telephone [facility] [address] [place] [address] [phone] Magnolia Parsons MD 10/04/2024 Refill [facility] [address] [place] [address] [phone] Magnolia Parsons MD Uncomplicated opioid dependence (CMS/HCC) 09/29/2024 Patient Outreach [facility] [address] [place] [address] [phone] Abdullahi Mcallister Recovery Supports 09/29/2024 Orders Only [facility] [address] [place] [address] [phone] Magnolia Parsons MD Uncomplicated opioid dependence (CMS/HCC) (Primary Dx) 09/29/2024 Telephone [facility] [address] [place] [address] [phone] Magnolia Parsons MD 09/28/2024 Telephone [facility] [address] [place] [address] [phone] Magnolia Parsons MD 09/26/2024 Refill [facility] [address] [place] [address] [phone] Magnolia Parsons MD Uncomplicated opioid dependence (CMS/HCC) 09/22/2024 3:45 PM EDT Office Visit [facility] [address] [place] [address] [phone] Magnolia Parsons MD Uncomplicated opioid dependence (CMS/HCC) (Primary Dx); Alcohol use disorder 09/22/2024 Travel 09/21/2024 Telephone [facility] [address] [place] [address] [phone] Magnolia Parsons MD 09/14/2024 11:00 AM EDT Office Visit [facility] [address] [place] [address] [phone] Gisela Pond, MICHAEL Alcohol use; Uncomplicated opioid dependence (CMS/HCC) 09/14/2024 Travel 09/14/2024 Telephone [facility] [address] [place] [address] [phone] Wallace Tamayo MD 09/14/2024 Telephone [facility] [address] [place] [address] [phone] Wallace Tamayo MD from Last 3 Months Immunizations Immunization Administration Dates Next Due Hep A, Adult 10/01/2022,03/21/2022 Influenza injectable quadriv alent IIV4 with preservative 03/21/2022 Pfizer Covid-19 Vaccine 12+ 03/07/2022 Social History Tobacco Use Types Packs/Day Years [...] Orientation Straight 02/14/2022 10 :19 AM EST Plan of Treatment Upcoming Encounters Date Type Department Care Team (Late st Contact Info) Description 11/24/2024 3:45 PM EDT Office Visit [facility] [address] [place] [phone] Magnolia Parsons MD [address] [place] [phone] 12/01/2024 3:45 PM EDT Office Visit [facility] [address] [place] [address] [phone] Magnolia Parsons MD [address] [place] [address] [phone] Health Maintenance Due Date Last Done Comments Lipid Panel 1989 SDOH Screening 1989 Disability Screening 1989 Alcohol/Substance Use Screening 2001 Tobacco Screening 2001 Family Planning (PISQ) 2004 HPV Vaccines (2 - 3-dose series) 12/21/2006 11/23/2006 Pap Smear 2010 Cervical Cancer Screening 11/05/2019 HPV/Cotest 11/05/2019 Depression Monitoring 03/29/2023 09/26/2022, 07/14/2 023 COVID-19 Vaccine (3 - season) 2024 03/07/2022, 12/19/2020 Influenza Vaccine (#1) 2024 , 03/21/2022, 04/20/2020, Additional history exists DTaP/Tdap/Td Vaccines (8 - Td or Tdap) 08/11/2033 08/12/2023, 10/14/2019, 02/06/2003, Additional history exists Zoster Vaccines (1 of 2) 11/05/2039 RSV Patients and Patients Aged 60 years or older (1 - 1-dose 75+ series) 2064 HIB Vaccines Completed 01/15/1992, 03/1990, 05/14/1990 IPV Vaccines Completed 02/14/1992, 03/1990, 05/14/1990, Additional history exists Hepatitis B Vaccines Completed 05/27/2001, 12/26/1999, 08/01/1998 Meningococcal Vaccine Aged Out 11/23/2006 No jhonny keo eligible based on patient's age to complete this topic Hepatitis A Vaccines Aged Out 10/01/2022, 03/21/19 23 No longer eligible based on patient's age to complete this topic Pneumococcal Vaccine: Pediatrics (0 to 5 Years) and At-Risk Patients (6 to 49) Years Completed 12/21/2023 HIV Screening Completed 09/29/2024, 10/2023, 06/22/2023 Hepatitis C Screening Completed 09/29/2024 Meningococcal B Vaccine Aged Out No l onger eligible based on patient's age to complete this topic RSV under 20 months Aged Out No longe r eligible based on patient's age to complete this topic Rotavirus Vaccines Aged Out No longer eligible based on patient's age to complete this topic Procedures Procedure Name Priority Date/Time Associated Diagnosis Comments POCT NOLVIA-14 URINE DRUG SCREEN Routine 11/17/2024 3:39 PM EDT Uncomplicated opioid dependence ([facility]) T-SPOT(R).TB Routine 09/29/2024 3:43 PM EDT Uncomplicated opioid dependence ([facility]) SYPHILIS SCREEN Routine 09/29/2024 3:43 PM EDT Uncomplicated opioid dependence (CMS/HCC) HIV 1/2 ANTIGEN/ANTIBODY, FOURTH GENERATION W/RFL Routine 09/29/2024 3:43 PM EDT Uncomplicated opioid dependence (CMS/HCC) HEPATITIS C AB W/REFL TO HCV RNA, QN, PCR Routine 09/29/2024 3:43 PM EDT Uncomplicated opioid dependence (CMS/HCC) HEPATITIS B SURFACE ANTIGEN, EIA Routine 09/29/2024 3:43 PM EDT Uncomplicated opioid dependence (CMS/HCC) HEPATITIS B SURFACE ANTIBODY, QUALITATIVE Routine 09/29/2024 3:43 PM EDT Uncomplicated opioid dependence (CMS/HCC) HEPATITIS B CORE AB TOTAL Routine 09/29/2024 3:43 PM EDT Uncomplicated opioid dependence (CMS/HCC) HEPATITIS A ANTIBODY, TOTAL Routine 09/29/2024 3:43 PM EDT Uncomplicated opioid dependence (CMS/HCC) HEPATIC FUNCTION PANEL Routine 09/29/2024 3:43 PM EDT Uncomplicated opioid dependence (CMS/HCC) POCT NOLVIA-14 URINE DRUG SCREEN Routine 09/22/2024 3:56 PM EDT Uncomplicated opioid dependence (CMS/HCC) from Last 3 Months Results * (ABNORMAL) POCT NOLVIA-14 Urine Drug Screen (11/17/2024 3:39 PM EDT) Only the most recent of2 resultswithin the time period is included. THC Negative Negative Cocaine Screen, Urine Positive(A) [...] procedure / Unknown 11/17/2024 3:39 PM EDT us Magnolia Parsons MD POINT OF CARE TEST ENTER/LIVIER T ORDERABLES Final Result * Syphilis Screen (09/29/2024 3:43 PM EDT) Syphilis Screen Nonreactive Nonreactive [facility] Blood 09/29/2024 3:43 PM EDT 09/29/2024 4:02 PM EDT us Magnolia Parsons MD LAB BLOOD ORDERABLES Final R esult [facility] [address] [place] [address] [phone] * T-SPOT??.TB (09/29/2024 3:43 PM EDT) T Spot TB Negative Negative [facility] Comment:A negative test resu lt does not exclude the possibilityof exposure to or infection with Mycobacteriumtuberculosis (M. tuberculosis). Patients with recentexposure to TB infected individuals exhibiting anegative T-SPOT.TB result should be considered forretesting within 6 weeks or if other relevant clinicalsymptoms indicate. Results from T-SPOT.TB testing mustbe used in conjunction with each individual'sepidemiological history, current medical status,and results of other diagnostic evaluations.The T-SPOT.TB test is qualitative and results arereported as positive, borderline, or negative, giventhat the test controls perform as expected. In linewith the Centers for Disease Control and Prevention's2010 recommendation to report quantitative measurementsalongside the qualitative result, the laboratoryprovides spot counts for informational purposes only.The T-SPOT.TB test should not be interpreted as aquantitative test. TS PANEL A 1 [facility] TS PANEL B 0 [facility] Negative Control Passed [facility] Positive Control Passed [facility] Comment:For additional infor mation, please refer tohttp://education.BookNow/faq/RUX020(This link is being provided for informational/educational purposes only.)REPORT COMMENT:REC'D AT [facility] TEST WAS PERFORMED AT:[id number] [place] [address]JHHVHDEPAULO SALAS MD,PHD 09/29/2024 3:43 PM EDT 09/29/2024 4:02 PM EDT Magnolia Parsons MD LAB BLOOD ORDERABLES Final R esult Performing Organization Address City/[facility]/ZIP Co de Phone Number [facility] [address] [place] [address] [phone] * Hepatitis C Antibody with Reflex to HCV, RNA, Quantitative, Real-Time PCR (09/29/2024 3:43 PM EDT) Hepatitis C Antibody Nonreactive Nonreactive [facility] Comment:Antibodies to HCV no t detected; does not exclude early acuteHCV infection. Blood Venous blood specimen / Unknown 09/29/2024 3:43 PM EDT 09/29/2024 4:02 PM EDT Magnolia Parsons MD LAB BLOOD ORDERABLES Final R esult Performing Organization Address [facility]/ZIP Co de Phone Number [facility] [address] [place] [address] [phone] * Hepatitis A Antibody, Total (09/29/2024 3:43 PM EDT) Hepatitis A Antibody IgG REACTIVE Nonreactive [facility] Comment:The presence of IgG anti-HAV implies past HAV infection(recent or distant) or vaccination against HAV. Blood Venous blood specimen / Unknown 09/29/2024 3:43 PM EDT 09/29/2024 4:02 PM EDT us Magnolia Parsons MD LAB BLOOD ORDERABLES Final R esult Performing Organization Address [facility]/ZIP Co de Phone Number [facility] [address] [place] [address] [phone] * Hepatitis B surface antigen, EIA (09/29/2024 3:43 PM EDT) Hepatitis B Surface Ag Negative Negative [facility] Blood Venous blood specimen / Unknown 09/29/2024 3:43 PM EDT 09/29/2024 4:02 PM EDT Magnolia Parsons MD LAB BLOOD ORDERABLES Final R esult Performing Organization Address [facility] Co de Phone Number [facility] [address] [place] [address] [phone] * Hepatitis B Core Antibody, Total (09/29/2024 3:43 PM EDT) Pathologist [facility] Hepatitis B Core Antibody Nonreactive Nonreactive [facility] Blood Venous blood specimen / Unknown 09/29/2024 3:43 PM EDT 09/29/2024 4:02 PM EDT Magnolia Parsons MD LAB BLOOD ORDERABLES Final R esult Performing Organization Address [facility] Co de Phone Number [facility] [address] [place] [address] [phone] * HIV-1/2 Antigen and Antibodies, Fourth Generation, with Reflexes (09/29/2024 3:43 PM EDT) HIV AB/AG Nonreactive Nonreactive [facility] Comment:HIV-1 p24 Ag and/or HIV-1/HIV-2 Ab not detected.A test result that is nonreactive does not exclude thepossibility of exposure to or infection with HIV-1 and/orHIV-2. Nonreactive results in this assay for individualswith prior exposure to HIV-1 and/or HIV-2 may be due toantigen and antibody levels that are below the limit ofdetection of this assay.The [employer] HIV Ag/Ab Combo assay result andsupplemental assay results should be interpreted inconjunction with the patient's clinical presentation,history and other laboratory results. If the results areinconsistent with clinical evidence, additional testing issuggested to confirm the result. Blood Venous blood specimen / Unknown 09/29/2024 3:43 PM EDT 09/29/2024 4:02 PM EDT Magnolia Parsons MD LAB BLOOD ORDERABLES Final R esult Performing Organization Address [facility]/ZIP Co de Phone Number [facility] [address] [place] [address] [phone] * Hepatitis B Surface Antibody, Qualitative (09/29/2024 3:43 PM EDT) Pathologist [facility] ~Hepatitis B Surface Antibody REACTIVE Nonreactive [facility] Comment:REACTIVE: > 11.99 mI U/mL Blood Venous blood specimen / Unknown 09/29/2024 3:43 PM EDT 09/29/2024 4:02 PM EDT Magnolia Parsons MD LAB BLOOD ORDERABLES Final R esult Performing Organization Address [facility] Co de Phone Number [facility] [address] [place] [address] [phone] * (ABNORMAL) Hepatic Function Panel (09/29/2024 3:43 PM EDT) Bilirubin, Total 0.6 0.0 - 1.0 mg/dL [facility] Bilirubin, Direct 0.3 0.0 - 0.5 mg/dL [facility] Aspartate Amino Transferase 100(H) 5 - 31 U/L [facility] Alanine Aminotransferase 110(H) 0 - 31 U/L [facility] Total Protein 7.4 6.5 - 8.0 g/dL [facility] Albumin Level 4.6 3.5 - 5.0 g/dL [facility] Alkaline Phosphatase 173(H) 39 - 117 U/L [facility] Blood Venous blood specimen / Unknown 09/29/2024 3:43 PM EDT 09/29/2024 4:02 PM EDT us Magnolia Parsons MD LAB BLOOD ORDERABLES Final R esult [facility] [address] [place] [phone] from Last [address] [place], [place] [address]
--- OUTSIDE RECORDS SUMMARY | 2024-11-17 17:42 | XMS_ITS | Encounter Summary ---
Author Organization [employer] Address [address] [place] [address] 7 [place] [address] Care Team Providers Care Advertising Intern Name Role Phone Unavailable Primary Care Provider Unavailabl e Reason for Visit * Reason Comments Med Refill Encounter Details Date Type Department Care Team (Late st Contact Info) Description 04/03/2023 Refill [facility] MEDICINE [address] [place] [phone] Nita Fenton MD [address] [place] [address] [phone] Uncomplicated opioid dependence (CMS/HCC) Social History Tobacco [...] Description 11/24/2024 3:45 PM EDT Office Visit [facility] [address] [place] [address] [phone] Magnolia Parsons MD [address] [place] [phone] 12/01/2024 3:45 PM EDT Office Visit [facility] [address] [place] [address] [phone] Magnolia Parsons MD [address] [place] [address] documented as of this encounter Visit Diagnoses Diagnosis Uncomplicated opioid dependence (CMS/HCC) documented in this encounter Additional Health Concerns Assessment Noted Time PHQ-9 Depression Total Score: 26 09/26/ 023 1:48 PM EDT documented as of this encounter
--- OUTSIDE RECORDS SUMMARY | 2024-11-17 17:42 | XMS_ITS | Encounter Summary ---
Author Organization [employer] Address [address] [place] [address] 7 [place] [address] Care Team Providers Care Pharmacy Operations Coordinator Name Role Phone Unavailable Primary Care Provider Unavailabl e Reason for Visit * Reason Comments Med Refill Encounter Details Date Type Department Care Team (Late st Contact Info) Description 04/03/2023 Refill [facility] MED[facility] [address] [place] [phone] Wallcae Tamayo MD [address] [place] [address] [phone] Uncomplicated opioid dependence (CMS/HCC) Social History Tobacco [...] Description 11/24/2024 3:45 PM EDT Office Visit [facility] [address] [place] [address] [phone] Magnolia Parsons MD [address] [place] [address] [phone] 12/01/2024 3:45 PM EDT Office Visit [facility] [address] [place] [address] [phone] Magnolia Parsons MD [address] [place] [address] documented as of this encounter Visit Diagnoses Diagnosis Uncomplicated opioid dependence (CMS/HCC) documented in this encounter Additional Health Concerns Assessment Noted Time PHQ-9 Depression Total Score: 26 09/26/ 023 1:48 PM EDT documented as of this encounter
--- OUTSIDE RECORDS SUMMARY | 2024-11-17 17:42 | XMS_ITS | Encounter Summary ---
Author Organization [employer] Address [address] [place] [address] 7 [place] [address] Care Team Providers Care Metal Fabricator Welder Name Role Phone Unavailable Primary Care Provider Unavailabl e Reason for Visit * Reason Comments Med Refill Encounter Details Date Type Department Care Team (Late st Contact Info) Description 11/09/2024 Refill [facility] [address] [place] [address] [phone] Wallace Tamayo MD [address] [place] [address] [phone] Uncomplicated opioid dependence (CMS/HCC) Social History Tobacco [...] Description 11/24/2024 3:45 PM EDT Office Visit [facility]INE [address] [place] [phone] Magnolia Parsons MD [address] [place] [address] [phone] 12/01/2024 3:45 PM EDT Office Visit [facility] MEDICINE [address] [place] [address] [phone] Magnolia Parsons MD [address] [place] [address] documented as of this encounter Visit Diagnoses Diagnosis Uncomplicated opioid dependence (CMS/HCC) documented in this encounter Additional Health Concerns Assessment Noted Time PHQ-9 Depression Total Score: 26 09/26/ 023 1:48 PM EDT documented as of this encounter
--- OUTSIDE RECORDS SUMMARY | 2024-11-17 17:42 | XMS_ITS | Encounter Summary ---
Author Organization [employer] Address [address] [place] [address] 7 [place] [address] Care Team Providers Care Anglesmith Helper Name Role Phone Unavailable Primary Care Provider Unavailabl e Encounter Details Date Type Department Care Team (Latest Contact Info) Description 11/17/2024 Travel Social History Tobacco Use Types Packs/Day Years [...] Description 11/24/2024 3:45 PM EDT Office Visit [facility] [address] [place] [phone] Magnolia Parsons MD [address] [place] [phone] 12/01/2024 3:45 PM EDT Office Visit [facility] [address] [place] [phone] Magnolia Parsons MD [address] [place] [phone] documented as of this encounter Visit Diagnoses Not on filedocumented in this encounter Additional Health Concerns Assessment Noted Time PHQ-9 Depression Total Score: 26 023 1:48 PM EDT documented as of this encounter
--- OUTSIDE RECORDS SUMMARY | 2024-11-17 17:42 | XMS_ITS | Encounter Summary ---
Author Organization [employer] Address [address] [place] [address] [address] [place] [address] Care Team Providers Care Special Education Instructor Name Role Phone Unavailable Primary Care Provider Unavailabl e Reason for Visit * Reason Onset Date Comments Med Refill 11/17/2024 Encounter Details Date Type Department Care Team (Late st Contact Info) Description 11/17/2024 Refill [facility] MEDICINE [address] [place] [phone] Magnolia Parsons MD [address] [place] [phone] Uncomplicated opioid dependence (CMS/HCC) Social History Tobacco [...] Description 11/24/2024 3:45 PM EDT Office Visit [facility] MED[facility] [address] [place] [phone] Magnolia Parsons MD [address] [place] [phone] 12/01/2024 3:45 PM EDT Office Visit [facility] [address] [place] [address] [phone] Magnolia Parsons MD [address] [place], [place] [phone] documented as of this encounter Visit Diagnoses Diagnosis Uncomplicated opioid dependence (CMS/HCC) documented in this encounter Additional Health Concerns Assessment Noted Time PHQ-9 Depression Total Score: 26 09/26/ 023 1:48 PM EDT documented as of this encounter
== END 2024-11-17 17:39 | disposition home or self-care (01) ==
LOC: HO.HHCLNP 17:38
PROVIDERS: Visit Provider Family Medicine
DX: F11.20 Opioid dependence, uncomplicated (principal)
CPT/HCPCS: 36415; 80353

== ENCOUNTER 2024-12-22 13:48 | Outpatient (REF) | payer MEDICAID, SELFPAY ==
[2024-12-22 16:57] LABS: Alanine Aminotransferase 51 U/L (0-31); Albumin Level 4.4 g/dL (3.5-5.0); Alkaline Phosphatase 130 U/L (39-117); Aspartate Amino Transferase 43 U/L (5-31); Total Protein 7.2 g/dL (6.5-8.0)
== END 2024-12-22 13:49 | disposition home or self-care (01) ==
LOC: HO.HHCL 13:48
PROVIDERS: PCP Family Medicine; Visit Provider Family Medicine
DX: F11.20 Opioid dependence, uncomplicated (principal)
CPT/HCPCS: 36415; 80076